=== PATIENT | female | born 1945 | race Caucasian/White ===

== ENCOUNTER → 2016-08-05 | Outpatient (CLI) | payer MEDICARE, BC ==
[2016-08-05 12:36] LABS: RHEUMATOID FACTOR TRIGGER LESS THAN 10.0 IU/ML (0.0-14.9)
--- NOTE | 2016-08-06 09:30 | RSPPFT ---
DATE OF PROCEDURE: 08/05/16 COMMENTS: VOLUMES DYNAMIC: FVC mildly reduced; FEV1 normal. STATIC: VTG, RV and TLC normal. FLOWS: FEV1% and FEF 25-75 super normal. DIFFUSION: Normal. FLOW VOLUME LOOP: Normal configuration. IMPRESSION: Normal pulmonary function with no significant obstructive or restriction and normal diffusion. No significant improvement in FEV1 post-bronchodilator.
== END ==
LOC: HRSP 10:50
PROVIDERS: ATTEND Internal Medicine
DX: R05 Cough (principal)
CPT/HCPCS: 36415; 86038; 86140; 86430; 94060; 94620; 94726; 94729